=== PATIENT | female | born 1980 | race Caucasian/White ===

== ENCOUNTER 2021-07-18 21:02 | Emergency (ER) | payer MEDICAID, OTHER ==
[~2021-07-18] VITALS: Ht 165.1 cm; Wt 63.5 kg
[2021-07-18] MEDS ORDERED: HYDROcodone-ACET 10/325MG TAB PO ONE (23:15)
[2021-07-18] MEDS ORDERED: CEPH-509 PO (23:45)
[2021-07-19 00:27] VITALS: BP 144/81
== END 2021-07-19 00:28 | disposition home or self-care (01) ==
LOC: ER 21:02
DX: L98.499 Non-pressure chronic ulcer of skin of other sites with unspecified severity (principal); F41.9 Anxiety disorder, unspecified